=== PATIENT | female | born 1940 | race Two or more races ===

== ENCOUNTER 2024-06-29 21:57 | Emergency (ER) | payer OTHER ==
[~2024-06-29] VITALS: Ht 152.4 cm; Wt 37.6 kg
[2024-06-29] MEDS ORDERED: MEMANTINE HCL E28 MG PO (22:04)
[2024-06-29] MEDS ORDERED: GALANTAMINE HBR8 MG PO (22:04)
[2024-06-29] MEDS ORDERED: ADULT LOW DOSE81 M1 (22:05)
[2024-06-29] MEDS ORDERED: ATORVASTATIN CA10 MG PO (22:05)
[2024-06-29] MEDS ORDERED: PROAIR RESPICL90 MCG (22:05)
[2024-06-29] MEDS ORDERED: ESCITALOPRA5 MG/5 ML (22:06)
[2024-06-29 22:08] VITALS: BP 128/71; O2SAT 95
[2024-06-29] MEDS ORDERED: 0.9 % SODIUM CHLORIDE 1,000 ML IV ONE (22:45)
[2024-06-30 01:00] LABS: HEMATOCRIT 37.6 % (36.0-45.00); HEMOGLOBIN 12.8 g/dL (12.0-15.00); MEAN CELL VOLUME 93.3 fL (80.00-100.00); MEAN CORPUSCULAR HEMOGLOBIN 31.7 pg (27.00-32.0); RED BLOOD COUNT 4.03 M/uL (4.00-6.00); RED CELL DISTRIBUTION WIDTH 13.7 % (11.5-14.5)
[2024-06-30 01:01] LABS: PLATELET COUNT 115 K/uL (150-450)
[2024-06-30 01:19] LABS: ALBUMIN 3.5 gm/dL (3.4-5.0); BILIRUBIN TOTAL 0.62 mg/dL (0.3-1.2); CALCIUM 9.8 mg/dL (8.5-10.1); CREATININE SERUM 0.81 mg/dL (0.55-1.02); GFR 67.04; GLOBULINA 3.7 G/DL (2.4-3.5); POTASSIUM 3.62 mEq/L (3.5-5.1); TOTAL PROTEIN 7.2 gm/dL (6.4-8.2)
[2024-06-30 02:53] LABS: PH,URINE 5.5 (5.0-8.0); URINE APPEARANCE Cloudy; URINE BILIRRUBIN Negative (NEGATIVE); URINE BLOOD Moderate; URINE COLOR Yellow; URINE GLUCOSE Negative (NEGATIVE); URINE KETONE 15 (NEGATIVE); URINE LEUKOCYTE Moderate; URINE NITRATE Negative; URINE PROTEIN Trace (NEGATIVE)
[2024-06-30 02:57] LABS: URINE BACTERIA 440.5 uL (0.0-1933); URINE EPITHELIAL CELLS 29.5 uL (0.0-38.8); URINE RBC 64.8 uL (0.0-20.8); URINE WBC 47.1 uL (0.0-23.2)
[2024-06-30 03:12] LABS: URINE EPITHELIAL CELLS 0-4 /HPF
[2024-06-30] MEDS ORDERED: PAXLOVID 300-11 EAC1 PO (03:34)
[2024-06-30] MEDS ORDERED: PEPCID40 MG PO (03:34)
[2024-06-30] MEDS ORDERED: ZYNCOF 20-400120 ML PO (03:34)
== END 2024-06-30 03:58 ==
LOC: ER 22:00
PROVIDERS: General Practice
DX: U07.1 COVID-19 (principal); R53.1 Weakness
CPT/HCPCS: 36415; 70450; 71045; 93005; 96365; 96366; 99284; J7030